=== PATIENT | female | born 2000 | race Caucasian/White ===

== ENCOUNTER 2019-09-01 13:28 | Emergency (ER) | payer BC ==
[~2019-09-01] VITALS: Ht 167.6 cm; Wt 90.9 kg
[2019-09-01 13:31] VITALS: TEMP 97.8
[2019-09-01 14:53] VITALS: BP 120/74; PULSE 71
== END 2019-09-01 14:54 | disposition home or self-care (01) ==
LOC: COL.ER 13:28
DX: S86.912A Strain of unspecified muscle(s) and tendon(s) at lower leg level, left leg, initial encounter (principal); W19.XXXA Unspecified fall, initial encounter; X50.1XXA Overexertion from prolonged static or awkward postures, initial encounter; Y92.009 Unspecified place in unspecified non-institutional (private) residence as the place of occurrence of the external cause

== ENCOUNTER 2020-04-17 22:01 | Emergency (ER) | payer BC ==
[~2020-04-17] VITALS: Ht 167.6 cm; Wt 100.0 kg
[2020-04-17 22:08] VITALS: BP 110/68; TEMP 98.2
[2020-04-17 23:40] VITALS: PULSE 104
== END 2020-04-17 23:43 | disposition home or self-care (01) ==
LOC: COL.ER 22:01
DX: L55.0 Sunburn of first degree (principal); J45.909 Unspecified asthma, uncomplicated; Z87.891 Personal history of nicotine dependence
CPT/HCPCS: J2405; J7030